=== PATIENT | female | born 1985 | race Caucasian/White ===

== ENCOUNTER 2020-02-15 12:27 | Inpatient (IN) | payer MEDICAID ==
[~2020-02-15] VITALS: Ht 160 cm; Wt 104.0 kg
[2020-02-15] MEDS ORDERED: ACYC200C PO (13:12)
[2020-02-15] MEDS ORDERED: HALOPERIDOL 5 MG TABLET PO PRN ×2 (13:15→18:30)
[2020-02-15] MEDS ORDERED: LORazepam 2 MG TABLET PO PRN ×2 (13:15→18:30)
[2020-02-15] MEDS ORDERED: CELE200 PO (13:19)
[2020-02-15] MEDS ORDERED: ALPR0.255 PO (13:19)
[2020-02-15] MEDS ORDERED: CLON-592 PO (13:20)
[2020-02-15] MEDS ORDERED: CYCL10 PO (13:20)
[2020-02-15] MEDS ORDERED: ESZO3 PO (13:21)
[2020-02-15] MEDS ORDERED: GABA-1181 PO (13:22)
[2020-02-15] MEDS ORDERED: FEXO180T94 PO (13:22)
[2020-02-15] MEDS ORDERED: PHEN1CPM4 PO (13:23)
[2020-02-15] MEDS ORDERED: PRAZ5 PO (13:25)
[2020-02-15] MEDS ORDERED: VENL-68 PO (13:26)
[2020-02-15] MEDS ORDERED: TOPI25 PO (13:26)
[2020-02-15] MEDS ORDERED: ZOLP10TA8 PO (13:27)
[2020-02-15] MEDS ORDERED: ZOLPIDEM TARTRATE 10 MG TABLET PO PRN (18:30)
[2020-02-15 19:16] VITALS: BP 117/68
[2020-02-16 06:32] VITALS: BP 110/69
[2020-02-16 07:48] LABS: BASOPHILS % (AUTO) 0.2 % (0.0-2.0); EOSINOPHILS % (AUTO) 0 % (1.0-6.0); HEMATOCRIT 35.6 % (36-46); LYMPHOCYTES # (AUTO) 1.9 K/uL (1.0-4.8); LYMPHOCYTES % (AUTO) 26.3 % (22.0-44.0); MEAN CORPUSCULAR HEMOGLOBIN 30.5 pg (26.0-34.0); MEAN CORPUSCULAR HGB CONC 33.8 G/dL (31.0-37.0); MEAN CORPUSCULAR VOLUME 90 fL (80-100); MONOCYTES # (AUTO) 0.4 K/uL (0.1-1.0); MONOCYTES % (AUTO) 5.4 % (2.0-9.0); NEUTROPHILS # (AUTO) 4.8 K/uL (1.8-7.7); NEUTROPHILS % (AUTO) 68.1 % (40.0-70.0); PLATELET COUNT (AUTO) 383 K/uL (150-450); RED BLOOD CELL COUNT(AUTO) 3.94 MIL/uL (4.00-5.20); RED CELL DISTRIBUTION WIDTH 12.6 % (11.5-14.5)
[2020-02-16 08:04] LABS: HEMOGLOBIN A1C 4.5 % (3.8-5.6)
[2020-02-16] MEDS ORDERED: ALBUTEROL SULFATE HFA 90 MCG/PUFF 8 GM INHALER IH PRN (08:15)
[2020-02-16] MEDS ORDERED: PETROLATUM,WHITE 28 GM JELLY TP PRN (08:15)
[2020-02-16] MEDS ORDERED: LOPERAMIDE HCL 2 MG CAPSULE PO PRN (08:15)
[2020-02-16] MEDS ORDERED: MAG HYDROX/AL HYDROX/SIMETH ES 30 ML SUSPENSION UDCUP PO PRN (08:15)
[2020-02-16] MEDS ORDERED: GuaiFENesin/D-METHORPHAN [SUGAR-FREE] 200-20MG/10 ML SYRUP UDCUP PO PRN (08:15)
[2020-02-16] MEDS ORDERED: CloNIDine HCL 0.1 MG TABLET PO PRN (08:15)
[2020-02-16] MEDS ORDERED: DOCUSATE SODIUM 100 MG CAPSULE PO PRN (08:15)
[2020-02-16] MEDS ORDERED: MAGNESIUM HYDROXIDE SUSPENSION 30 ML UDCUP PO PRN (08:15)
[2020-02-16] MEDS ORDERED: NICOTINE 14 MG/24 HOUR PATCH TD PRN (08:15)
[2020-02-16] MEDS ORDERED: IBUPROFEN 400 MG TABLET PO PRN (08:15)
[2020-02-16] MEDS ORDERED: ONDANSETRON HCL 4 MG TABLET PO PRN (08:15)
[2020-02-16] MEDS ORDERED: ACETAMINOPHEN 325 MG TABLET PO PRN (08:15)
[2020-02-16 08:17] LABS: ALANINE AMINOTRANSFERASE 21 U/L (12-78); ALBUMIN 3.1 g/dL (3.4-5.0); ALKALINE PHOSPHATASE 71 U/L (46-116); ANION GAP 10 mmol/L (8-16); ASPARTATE AMINOTRANSFERASE 10 U/L (15-37); BILIRUBIN,TOTAL 0.3 mg/dL (0.1-1.0); CALCIUM, TOTAL 8.9 mg/dL (8.8-10.5); CARBON DIOXIDE 22 mmol/L (22-29); CHLORIDE 105 mmol/L (98-107); CHOL/HDL RATIO 4.7 (3.9-5.7); CHOLESTEROL 179 mg/dL (131-200); FREE T4 (FREE THYROXINE) 1.52 ng/dL (0.76-1.46); GLOMERULAR FILTR. RATE CALC > 60 mL/min (>60); GLUCOSE,RANDOM 86 mg/dL (70-110); HCG,QUANTITATIVE < 1 mIU/mL (0-6); HDL CHOLESTEROL 38 mg/dL (40-60); LDL CHOL (CALC.) 127 mg/dL (0-130); POTASSIUM 3.5 mmol/L (3.5-5.1); SODIUM SERUM 137 mmol/L (136-145); TOTAL PROTEIN, SERUM 7.7 g/dL (6.4-8.2); TRIGLYCERIDES 72 mg/dL (15-150); UREA NITROGEN, BLOOD 13 mg/dL (7-18)
[2020-02-16 08:19] VITALS: BP 122/77
[2020-02-16] MEDS: ACYCLOVIR 200 MG CAPSULE PO SCH ×3 (09:00→16:15)
[2020-02-16] MEDS ORDERED: GABAPENTIN 300 MG CAPSULE PO SCH (09:00)
[2020-02-16] MEDS: CYCLOBENZAPRINE HCL 10 MG TABLET PO SCH ×3 (09:05→16:45)
[2020-02-16] MEDS: GABAPENTIN 300 MG CAPSULE PO SCH ×3 (09:07→16:15)
[2020-02-16] MEDS: VENLAFAXINE HCL 150 MG ER CAPSULE PO SCH (13:25)
[2020-02-16 16:01] VITALS: BP 114/68
[2020-02-16] MEDS: TOPIRAMATE 25 MG TABLET PO SCH (16:46)
[2020-02-16] MEDS: PRAZOSIN HCL 1 MG CAPSULE PO SCH (20:47)
[2020-02-16] MEDS: ZOLPIDEM TARTRATE 10 MG TABLET PO PRN (21:01)
[2020-02-17 03:30] VITALS: BP 112/63
[2020-02-17 08:11] VITALS: BP 133/75
[2020-02-17 08:31] LABS: BASOPHILS % (AUTO) 0.2 % (0.0-2.0); EOSINOPHILS % (AUTO) 0 % (1.0-6.0); HEMATOCRIT 37.9 % (36-46); HEMOGLOBIN 13.3 g/dL (12.0-16.0); LYMPHOCYTES # (AUTO) 3.5 K/uL (1.0-4.8); LYMPHOCYTES % (AUTO) 38.2 % (22.0-44.0); MEAN CORPUSCULAR HEMOGLOBIN 31.5 pg (26.0-34.0); MEAN CORPUSCULAR VOLUME 90 fL (80-100); MONOCYTES # (AUTO) 0.6 K/uL (0.1-1.0); NEUTROPHILS % (AUTO) 54.6 % (40.0-70.0); PLATELET COUNT (AUTO) 461 K/uL (150-450); RED BLOOD CELL COUNT(AUTO) 4.21 MIL/uL (4.00-5.20); RED CELL DISTRIBUTION WIDTH 12.5 % (11.5-14.5)
[2020-02-17] MEDS: ACYCLOVIR 200 MG CAPSULE PO SCH ×2 (08:50→17:16)
[2020-02-17] MEDS: VENLAFAXINE HCL 150 MG ER CAPSULE PO SCH (08:51)
[2020-02-17] MEDS: CYCLOBENZAPRINE HCL 10 MG TABLET PO SCH ×3 (08:52→17:16)
[2020-02-17] MEDS: GABAPENTIN 300 MG CAPSULE PO SCH ×3 (08:52→17:16)
[2020-02-17] MEDS: TOPIRAMATE 25 MG TABLET PO SCH ×2 (08:52→17:16)
[2020-02-17 09:07] LABS: APPEARANCE,URINE CLEAR (CLEAR); BILIRUBIN,URINE NEGATIVE (NEGATIVE); GLUCOSE, URINE (UA) NEGATIVE (NEGATIVE); KETONES,URINE TRACE mg/dL (NEGATIVE); LEUKOCYTE ESTERASE ,URINE NEGATIVE (NEGATIVE); NITRATE,URINE NEGATIVE (NEGATIVE); OCCULT BLOOD,URINE TRACE (NEGATIVE); PH,URINE 6.5 (5.0-8.0); PROTEIN,URINE NEGATIVE (NEGATIVE); UROBILINOGEN,URINE 0.2 mg/dL (<=1.0)
[2020-02-17 09:13] LABS: AMPHET/METH SCREEN,URINE NEGATIVE (NEGATIVE); BARBITURATE SCREEN, URINE NEGATIVE (NEGATIVE); BENZODIAZEPINES SCREEN,URINE NEGATIVE (NEGATIVE); CANNABINOID SCREEN,URINE POSITIVE (NEGATIVE); COCAINE SCREEN,URINE NEGATIVE (NEGATIVE); METHADONE SCREEN, URINE NEGATIVE (NEGATIVE); OPIATE SCREEN,URINE NEGATIVE (NEGATIVE)
[2020-02-17 09:15] LABS: PHENCYCLIDINE SCREEN,URINE NEGATIVE (NEGATIVE)
[2020-02-17 09:25] LABS: BACTERIA,URINE None Seen /HPF (None Seen); RBC,URINE 0-2 /HPF (0-2); SQUAMOUS EPITHELIAL CELL,UR Moderate /LPF (None Seen); WBC,URINE 0-2 /HPF (0-5)
[2020-02-17 16:24] VITALS: BP 113/77
[2020-02-17] MEDS: PRAZOSIN HCL 1 MG CAPSULE PO SCH (21:23)
[2020-02-17] MEDS: ZOLPIDEM TARTRATE 10 MG TABLET PO PRN (21:23)
[2020-02-18 02:01] VITALS: BP 119/63
[2020-02-18 08:15] VITALS: BP 113/63
[2020-02-18] MEDS: CYCLOBENZAPRINE HCL 10 MG TABLET PO SCH ×3 (09:53→16:54)
[2020-02-18] MEDS: TOPIRAMATE 25 MG TABLET PO SCH ×2 (09:54→16:54)
[2020-02-18] MEDS: ACYCLOVIR 200 MG CAPSULE PO SCH ×2 (09:54→21:11)
[2020-02-18] MEDS: VENLAFAXINE HCL 150 MG ER CAPSULE PO SCH (09:54)
[2020-02-18] MEDS: GABAPENTIN 300 MG CAPSULE PO SCH ×3 (09:54→16:54)
[2020-02-18 16:20] VITALS: BP 107/72
[2020-02-18] MEDS: PRAZOSIN HCL 2 MG CAPSULE PO SCH (21:11)
[2020-02-18] MEDS: ZOLPIDEM TARTRATE 10 MG TABLET PO PRN (21:14)
[2020-02-19 00:16] VITALS: BP 111/64
[2020-02-19] MEDS: ACYCLOVIR 200 MG CAPSULE PO SCH ×2 (08:12→16:42)
[2020-02-19] MEDS: CYCLOBENZAPRINE HCL 10 MG TABLET PO SCH ×3 (08:12→16:42)
[2020-02-19 08:13] VITALS: BP 113/65
[2020-02-19] MEDS: TOPIRAMATE 25 MG TABLET PO SCH ×2 (08:13→16:42)
[2020-02-19] MEDS: VENLAFAXINE HCL 150 MG ER CAPSULE PO SCH (08:13)
[2020-02-19] MEDS: GABAPENTIN 300 MG CAPSULE PO SCH ×3 (08:13→16:42)
[2020-02-19 16:31] VITALS: BP 106/68
[2020-02-19] MEDS: PRAZOSIN HCL 2 MG CAPSULE PO SCH (20:21)
[2020-02-20 05:19] VITALS: BP 110/68
[2020-02-20] MEDS: TOPIRAMATE 25 MG TABLET PO SCH (08:15)
[2020-02-20] MEDS: ACYCLOVIR 200 MG CAPSULE PO SCH (08:15)
[2020-02-20] MEDS: GABAPENTIN 300 MG CAPSULE PO SCH (08:15)
[2020-02-20] MEDS: VENLAFAXINE HCL 150 MG ER CAPSULE PO SCH (08:15)
[2020-02-20] MEDS: CYCLOBENZAPRINE HCL 10 MG TABLET PO SCH (08:15)
[2020-02-20 08:40] VITALS: BP 111/66
[2020-02-20] MEDS ORDERED: CYCL10 PO (09:22)
[2020-02-20] MEDS ORDERED: PRAZ2 PO (09:22)
== END 2020-02-20 10:45 | disposition home or self-care (01) | DRG 751 ==
LOC: B3A 18:40 → B2S 02-17 19:15
DX: F33.2 Major depressive disorder, recurrent severe without psychotic features (principal); F43.12 Post-traumatic stress disorder, chronic; G43.909 Migraine, unspecified, not intractable, without status migrainosus; T39.392A Poisoning by other nonsteroidal anti-inflammatory drugs [NSAID], intentional self-harm, initial encounter; T42.4X2A Poisoning by benzodiazepines, intentional self-harm, initial encounter; J45.909 Unspecified asthma, uncomplicated; F19.10 Other psychoactive substance abuse, uncomplicated; M79.7 Fibromyalgia; R45.851 Suicidal ideations; F41.9 Anxiety disorder, unspecified; M19.90 Unspecified osteoarthritis, unspecified site; Z79.899 Other long term (current) drug therapy; Z91.5 Personal history of self-harm; Z88.2 Allergy status to sulfonamides; Z88.8 Allergy status to other drugs, medicaments and biological substances; Y92.89 Other specified places as the place of occurrence of the external cause
CPT/HCPCS: 80307; 83036; 84436; 84439; 86592; 87081